=== PATIENT | male | born 1950 | race Asian ===

== ENCOUNTER 2022-06-13 05:21 | Emergency (ER) | payer MEDICARE ==
[~2022-06-13] VITALS: Ht 165.1 cm; Wt 68.2 kg
[2022-06-13 06:39] LABS: Urine WBC None Seen /hpf (0 - 3)
[2022-06-13 06:40] LABS: Basophils # (auto) 0 10 ^3/uL (0-0.2); Lymphocytes # (auto) 0.9 10 ^3/uL (0.4-5.4); Monocytes # (auto) 0.3 10 ^3/uL (0-1.3); Neutrophils # (auto) 7.1 10 ^3/uL (1.6-8.6)
[2022-06-13 06:43] LABS: Basophils % (auto) 0.3 % (0.0-2.0); Eosinophils # (auto) 0 10 ^3/uL (0-0.8); Eosinophils % (auto) 0.5 % (0.0-7.0); Hematocrit 41.5 % (41.0-53.0); Lymphocytes % (auto) 11.4 % (10.0-50.0); Mean Corpuscular Hemoglobin 38.3 pg (28.0-32.0); Mean Corpuscular Hgb Conc. 36.1 g/dL (32.0-36.0); Monocytes % (auto) 3.2 % (0.0-12.0); Neutrophils % (auto) 84.6 % (37.0-80.0); Red Blood Cells 3.91 10^6/uL (4.5-5.90); White Blood Cell 8.3 10^3/uL (4.4-10.8)
[2022-06-13 07:06] LABS: Urine Bacteria NONE SEEN /hpf (None Seen); Urine Blood Negative /uL (Negative); Urine Mucus FEW (None Seen); Urine Specific Gravity 1.027 (1.001-1.035)
[2022-06-13 07:31] LABS: Albumin 3.8 g/dL (3.4-5.0); BUN/Creatinine Ratio 34.4 (10.0-20.0); Calcium 9.2 mg/dL (8.5-10.1)
[2022-06-13] MEDS ORDERED: HYDROcodone-ACET 5/325MG TAB PO ONE (08:15)
[2022-06-13 09:16] LABS: Bilirubin, Total 0.6 mg/dL (0.2-1.0)
[2022-06-13] MEDS ORDERED: OMEP-434 PO (10:48)
[2022-06-13 11:00] VITALS: BP 116/82
== END 2022-06-13 11:05 | disposition home or self-care (01) ==
LOC: ER 05:21
DX: R10.13 Epigastric pain (principal)
CPT/HCPCS: 36415; 74176; 76705; 80053; 81001; 83690; 84484; 85025